=== PATIENT | male | born 1955 | race Caucasian/White ===

== ENCOUNTER → 2018-05-20 12:51 | Outpatient (CLI) | payer BC, SELFPAY ==
--- NOTE | 2018-05-20 13:02 | XR_ITS ---
XR foot RT min 3V HISTORY: ITS.REASON: RT FOOT PAIN ORDERING PHYSICIAN: Shireen Wolf PATIENT AGE: 63 years COMPARISON: None FINDINGS: No fracture or dislocation. No lytic or blastic change. There is normal mineralization.. There is prominent rather uniform narrowing of the MP joint of the great toe. The remaining joint spaces appear normal. The plantar arch is normal. IMPRESSION: Mild osteoarthritis MP joint great toe otherwise negative right foot
== END ==
PROVIDERS: PCP Family Medicine; Visit Provider Nurse Practitioner
DX: M79.671 Pain in right foot (principal)
CPT/HCPCS: 73630

== ENCOUNTER → 2022-04-28 12:10 | Outpatient (CLI) | payer SELFPAY ==
[2022-04-28 18:35] LABS: Alanine Aminotransferase 18 U/L (12-78); Albumin/Globulin Ratio 2.1 (1.1-1.8); Alkaline Phosphatase 40 U/L (38-126); Anion Gap 12.6 mEq/L (5-15); Aspartate Amino Transferase 27 U/L (17-59); Bilirubin,Total 0.6 mg/dl (0.2-1.3); Blood Urea Nitrogen 14 mg/dl (9-20); Calcium 9.1 mg/dl (8.4-10.2); Carbon Dioxide 30 mmol/L (22.0-30.0); Chloride 100 mmol/L (98-107); Estimated Glomerular Filt Rate 97 ml/min (>60); GFR (African American) 117 ML/MIN (>60); Globulin 2.4 g/dL (1.3-3.2); Glucose 103 mg/dl (74-100); Potassium 3.6 mmoL/L (3.5-5.1); Sodium 139 mmol/L (136-145); Total Protein,Serum 7.4 g/dl (6.3-8.2)
== END ==
PROVIDERS: PCP Family Medicine; Visit Provider Family Medicine
DX: I10 Essential (primary) hypertension (principal)
CPT/HCPCS: 80053

== ENCOUNTER → 2022-08-15 23:13 | Outpatient (CLI) | payer MEDICARE, SELFPAY ==
[2022-08-15 19:05] LABS: Alanine Aminotransferase 20 U/L (12-78); Albumin Level 4.5 g/dl (3.5-5.0); Albumin/Globulin Ratio 2.3 (1.1-1.8); Alkaline Phosphatase 35 U/L (38-126); Anion Gap 11.8 mEq/L (5-15); Aspartate Amino Transferase 29 U/L (17-59); Bilirubin,Total 0.4 mg/dl (0.2-1.3); Blood Urea Nitrogen 15 mg/dl (9-20); Calcium 8.5 mg/dl (8.4-10.2); Carbon Dioxide 30 mmol/L (22.0-30.0); Chloride 101 mmol/L (98-107); Estimated Glomerular Filt Rate 113 ml/min (>60); GFR (African American) 137 ML/MIN (>60); Glucose 100 mg/dl (74-100); Potassium 3.8 mmoL/L (3.5-5.1); Sodium 139 mmol/L (136-145); Total Protein,Serum 6.5 g/dl (6.3-8.2)
[2022-08-15 19:37] LABS: Prostate Specific Ag Screen 2.2 ng/ml (0.0-4.0)
== END ==
PROVIDERS: PCP Family Medicine; Visit Provider Family Medicine
DX: I10 Essential (primary) hypertension (principal); Z12.5 Encounter for screening for malignant neoplasm of prostate
CPT/HCPCS: 80053; G0103

== ENCOUNTER → 2023-01-16 11:00 | Outpatient (CLI) | payer MEDICARE, SELFPAY ==
[2023-01-16 19:46] LABS: Basophils % 0.6 % (0.1-2.0); Eosinophils # 0.1 K/mm3 (0.0-0.4); Eosinophils % 0.8 % (0.1-12.0); Hematocrit 49.6 % (42.0-52.0); Hemoglobin 16.2 g/dL (14.1-18.0); Lymphocytes # 2.2 K/mm3 (0.7-4.5); Mean Corpuscular HGB Conc 32.6 g/dL (31.8-35.4); Mean Corpuscular Hemoglobin 30.5 pg (27.0-31.2); Mean Corpuscular Volume 93.5 fl (80-94); Mean Platelet Volume 9.4 fl (7.4-10.4); Monocytes # 0.5 K/mm3 (0.1-1.0); Monocytes % 6.6 % (1.7-9.3); Neutrophils # 4.3 K/mm3 (1.8-7.8); Platelet Count 212 K/mm3 (142-424); Red Cell Distribution Width 13.4 % (11.5-17.5); White Blood Count 7.1 K/mm3 (4.8-10.8)
[2023-01-16 19:53] LABS: Alanine Aminotransferase 22 U/L (12-78); Albumin Level 4.6 g/dl (3.5-5.0); Albumin/Globulin Ratio 1.8 (1.1-1.8); Alkaline Phosphatase 35 U/L (38-126); Anion Gap 15.9 mEq/L (5-15); Aspartate Amino Transferase 29 U/L (17-59); Bilirubin,Total 0.5 mg/dl (0.2-1.3); Blood Urea Nitrogen 18 mg/dl (9-20); Calcium 9.1 mg/dl (8.4-10.2); Carbon Dioxide 23 mmol/L (22.0-30.0); Chloride 103 mmol/L (98-107); Chol/HDL Ratio 3.1 (1-3.5); Cholesterol 128 mg/dl (140-200); Estimated Glomerular Filt Rate 97 ml/min (>60); GFR (African American) 117 ML/MIN (>60); Globulin 2.6 g/dL (1.3-3.2); Glucose 109 mg/dl (74-100); HDL Cholesterol 41 mg/dl (40-60); Potassium 3.9 mmoL/L (3.5-5.1); Sodium 138 mmol/L (136-145); Total Protein,Serum 7.2 g/dl (6.3-8.2); Triglycerides 69 mg/dl (30-150); VLDL Cholesterol 14 mg/dL (0-40)
[2023-01-16 20:05] LABS: Direct LDL Cholesterol 70.68 mg/dL (100-129)
[2023-01-16 20:24] LABS: Thyroid Stimulating Hormone 0.41 uIU/mL (0.465-4.68)
== END ==
PROVIDERS: PCP Family Medicine; Visit Provider Family Medicine
DX: I10 Essential (primary) hypertension (principal)
CPT/HCPCS: 80053; 80061; 84443; 85025

== ENCOUNTER → 2023-03-06 09:09 | Outpatient (CLI) | payer MEDICARE, SELFPAY ==
[2023-03-06 19:24] LABS: Free T4 (Free Thyroxine) 0.87 ng/dl (0.78-2.19)
[2023-03-06 19:39] LABS: Thyroid Stimulating Hormone 0.95 uIU/mL (0.465-4.68)
== END ==
PROVIDERS: PCP Family Medicine; Visit Provider Family Medicine
DX: I10 Essential (primary) hypertension (principal); Z79.899 Other long term (current) drug therapy
CPT/HCPCS: 84439; 84443

== ENCOUNTER 2023-07-17 21:10 | Outpatient (CLI) | payer MEDICARE, SELFPAY ==
[2023-07-17 19:51] LABS: Hemoglobin A1C 5.6 % (4.0-6.0)
[2023-07-17 19:53] LABS: T4 (Thyroxine) 6.8 ug/dl (5.53-11.0)
[2023-07-17 20:07] LABS: Prostate Specific Ag, Diagnost 4.06 ng/ml (0.0-4.0); Thyroid Stimulating Hormone 0.63 uIU/mL (0.465-4.68)
== END 2023-07-17 23:59 ==
LOC: LAB.DROPOF 21:11
PROVIDERS: PCP Family Medicine; Visit Provider Family Medicine
DX: E07.9 Disorder of thyroid, unspecified (principal); R73.9 Hyperglycemia, unspecified; N40.2 Nodular prostate without lower urinary tract symptoms
CPT/HCPCS: 83036; 84153; 84436; 84443

== ENCOUNTER 2023-08-07 14:07 | Outpatient (CLI) | payer MEDICARE, SELFPAY | END 2023-08-07 23:59 | LOC: LAB.DROPOF 08-08 14:08 | PROVIDERS: PCP Family Medicine; Visit Provider Family Medicine | DX: R30.0 Dysuria (principal) | CPT/HCPCS: 87086 ==

== ENCOUNTER 2023-08-13 07:18 | Outpatient (CLI) | payer MEDICARE, SELFPAY ==
--- NOTE | 2023-08-13 07:19 | CT_ITS ---
FINAL REPORT TECHNIQUE: After the administration of oral and intravenous contrast, axial images were obtained through the abdomen and pelvis by computed tomography. The study was performed with techniques to keep radiation dose as low as reasonably achievable, (ALARA). Individual dose reduction techniques using automated exposure control or adjustment of mA and/or kV according to the patient's size were employed. CLINICAL HISTORY: pain, lower abdomen, testicle pain, enlarged prostate COMPARISON: None FINDINGS: Abdomen: The lung bases are clear. The liver parenchyma is homogeneous. Calcified gallstones are present in the gallbladder. The spleen and pancreas appear unremarkable. There is a adrenal nodule on the left side, which measures 1.2 cm in diameter. There is a benign-appearing cyst in the left kidney, measuring 2.4 cm in diameter. The aorta is normal in caliber. There is no free fluid or adenopathy. Pelvis: The appendix is not identified. Moderate diverticulosis of the sigmoid colon is noted without acute inflammatory change. The urinary bladder is nondistended. There is no free fluid or adenopathy. There is prostate enlargement, measuring 6 cm in diameter, with posterior calcifications. IMPRESSION: Calcified gallstones present in the gallbladder without biliary ductal dilatation. 1.2 cm left adrenal cyst. Benign-appearing cyst in the left kidney measuring 2.4 cm in diameter. Prostate enlargement, measuring 6 cm in diameter, with posterior calcifications noted. Reviewed, Interpreted and Dictated by Raymond Blake MD Transcribed by Ingris Adams Authenticated and [facility]
[2023-08-13 07:55] LABS: Blood Urea Nitrogen 7 mg/dl (9-20); Estimated Glomerular Filt Rate 112 ml/min (>60); GFR (African American) 136 ML/MIN (>60)
[2023-08-13] MEDS: SODIUM CHLORIDE 0.9% 10ML SYR (RAD ONLY) 10 ML IV (08:31)
[2023-08-13] MEDS: IOPAMIDOL-370 (76%);100ML BOTTLE 75 ML IV (08:31)
== END 2023-08-13 23:59 ==
LOC: RAD 07:19
PROVIDERS: PCP Family Medicine; Visit Provider Family Medicine
DX: R10.9 Unspecified abdominal pain (principal)
CPT/HCPCS: 36415; 74177; 82565; 84520; Q9967

== ENCOUNTER 2023-09-10 08:11 | Outpatient (CLI) | payer MEDICARE, SELFPAY ==
--- NOTE | 2023-09-10 08:11 | US_ITS ---
FINAL REPORT CLINICAL HISTORY: Right upper quad pain x 2 months FINDINGS: Sonographic images of the right upper quadrant were obtained. The pancreas is partially obscured.The liver has an unremarkable appearance. Lobular echogenic shadowing foci are seen in the gallbladder favored to represent unusual stones over tumefactive sludge or mass. These measure up to 1.7 cm. Common duct is normal in caliber at 3 mm. Right kidney demonstrates a 1.4 cm cyst but is otherwise unremarkable. IMPRESSION: Abnormal foci in the gallbladder which could represent unusual stones, tumefactive sludge or mass. Recommend follow-up ultrasound or MRCP for further evaluation. Reviewed, Interpreted and Dictated by Luc Lynn III, MD Transcribed by Bonita Brown Authenticated and [facility]
== END 2023-09-10 23:59 | disposition home or self-care (01) ==
LOC: RAD 08:11
PROVIDERS: PCP Family Medicine; Visit Provider Surgery
DX: R10.9 Unspecified abdominal pain (principal)
CPT/HCPCS: 76705

== ENCOUNTER 2023-11-08 13:38 | Outpatient (CLI) | payer MEDICARE, SELFPAY ==
[2023-11-08 14:17] LABS: Basophils % 0.6 % (0.1-2.0); Eosinophils % 0.4 % (0.1-12.0); Hematocrit 41.6 % (42.0-52.0); Hemoglobin 14.4 g/dL (14.1-18.0); Lymphocytes # 1.6 K/mm3 (0.7-4.5); Lymphocytes % 29.3 % (10-50); Mean Corpuscular HGB Conc 34.7 g/dL (31.8-35.4); Mean Corpuscular Hemoglobin 32.5 pg (27.0-31.2); Mean Corpuscular Volume 93.7 fl (80-94); Mean Platelet Volume 8.6 fl (7.4-10.4); Monocytes # 0.4 K/mm3 (0.1-1.0); Monocytes % 6.5 % (1.7-9.3); Neutrophils # 3.4 K/mm3 (1.8-7.8); Neutrophils % 63.1 % (37.0-80.0); Platelet Count 190 K/mm3 (142-424); Red Blood Count 4.44 M/mm3 (4.60-6.20); Red Cell Distribution Width 13.6 % (11.5-17.5); White Blood Count 5.4 K/mm3 (4.8-10.8)
[2023-11-08 14:33] LABS: Alanine Aminotransferase 18 U/L (12-78); Albumin Level 4.6 g/dl (3.5-5.0); Albumin/Globulin Ratio 2.3 (1.1-1.8); Alkaline Phosphatase 25 U/L (38-126); Anion Gap 8.5 mEq/L (5-15); Aspartate Amino Transferase 23 U/L (17-59); Blood Urea Nitrogen 24 mg/dl (9-20); Calcium 9.3 mg/dl (8.4-10.2); Carbon Dioxide 33 mmol/L (22.0-30.0); Chloride 100 mmol/L (98-107); Estimated Glomerular Filt Rate 112 ml/min (>60); GFR (African American) 136 ML/MIN (>60); Glucose 78 mg/dl (74-100); Potassium 3.5 mmoL/L (3.5-5.1); Sodium 138 mmol/L (136-145); Total Protein,Serum 6.6 g/dl (6.3-8.2)
== END 2023-11-08 23:59 | disposition home or self-care (01) ==
LOC: LAB 13:39
PROVIDERS: PCP Family Medicine; Visit Provider Surgery
DX: K80.20 Calculus of gallbladder without cholecystitis without obstruction (principal)
CPT/HCPCS: 36415; 80053; 85025

== ENCOUNTER 2023-12-03 06:51 | Day surgery (SDC) | payer MEDICARE, SELFPAY ==
[2023-12-03] VITALS (11 sets, daily range): BP systolic 110–157; BP diastolic 63–84; PULSE 58–71; RESP 14–19; TEMP 36.4–43; O2SAT 91–100; BMI 22.7
[2023-12-03] MEDS: LACTATED RINGERS 1000ML 1,000 ML 25 ML IV (07:10)
--- NOTE | 2023-12-03 07:24 | P.PNANES_ITS ---
[facility] Disclaimer: The information contained in this section may have been updated after the patient was seen, as this information can be updated by other users. Medical History Cholelithiasis Benign prostatic hyperplasia Abdominal pain Hip pain Abnormal TSH Hyperglycemia Seborrheic dermatitis Bilateral cataracts Closed comedone Primary hypertension Skin abscess Hypertension Surgical History History of colonoscopy Status post bilateral iridectomy Family History Other Cancer Diabetes Hypertension Social History Smoking Status: Never smoker alcohol intake: never substance use type: denies use current occupational status: employed Travel in the last 8 weeks: None household members: family housing: house [facility] Anesthesia Checklist Patient Identification Patient Identification: Arm Band and Verbal (Name & ) Structural Data Admitted From: Home Planned Operative Procedure/s: Lap. cholecystectomy Consent for Planned Operative Procedure(s) Verified: Yes Verified Documents: Surgical Consent and History and Physical NPO Status Verified Time NPO: 00:00 Chart Verification Results Verified: CBC and BMP Additional verifications Anesthesia Reactions: No Airway Assessment Mallampati Score:: Class III C-Spine Mobility Assessed: Yes TMJ Mobility Assessed: Yes Dentition: Good Dentition Neurological Assessment Level of Consciousness: Awake Hx Seizures: No Numbness or tingling in extremities: No Anesthesia Plan Anesthesia Risk discussed: Yes Anesthesia Plan: Verified ASA Class: II Anesthesia Type: General
[2023-12-03] MEDS: CEFAZOLIN SODIUM 2 GM in 0.9 % SODIUM CHLORIDE 100 ML IV (08:15)
[2023-12-03] MEDS: ROPIVACAINE 0.5% 30ML VIAL 150 MG (08:43)
[2023-12-03] MEDS: LIDOCAINE 1% 20ML MDV 20 ML (08:43)
[2023-12-03] MEDS: SODIUM CHLORIDE IRRIG SOLUTION 3,000 ML 25 ML IR (08:43)
--- NOTE | 2023-12-03 11:05 | EXP.OP.NOTE ---
Date of procedure: 12/03/23 Pre-op Diagnosis:: Symptomatic gallstones Post-op Diagnosis:: Same Procedure performed:: Laparoscopic cholecystectomy, laparoscopic liver biopsy Surgeon:: Luc Fuchs MD STORM SASH MAKER:: Hadley Chun Anesthesia: GETA Estimated blood loss (mL): 100 Clinical Note:: Patient presents for cholecystectomy. He is a pleasant 68-year-old male referred by Dr. Feldman from the [facility] for gallstones. Patient is originally from [place] and has lived in [facility] [place] for the past 9 years. Previously resided in [place] near [place]. He describes a several month history of some atypical symptoms. He describes pain in the right groin area radiating down to the right testicle. He has some urinary frequency. He also has frequent bowel movements moving his bowels approximately 4-8 times per day. These are not loose diarrhea but somewhat thin and soft. He has some feeling of incomplete evacuation. He was started on MiraLAX he states but this actually increased his diarrhea. As a workup he underwent CT scan. This revealed some calcified gallstones without ductal dilatation. There was some prostate enlargement measuring 6 cm in diameter with calcifications. He was sent for surgical consultation. Patient has previously seen a pantry worker in [facility]. He states that he is due for a colonoscopy in January of this year. I felt that his symptoms were rather atypical for gallbladder. I did recommend he expedite following up with his pantry worker. He also has an appointment with urology. I did have him undergo gallbladder ultrasound. This reveals abnormal foci in the gallbladder which could represent unusual stones, tumefactive sludge, or mass. Radiology recommends follow-up ultrasound or MRCP for further evaluation. I felt that MRCP would be rather low yield. I did have him proceed with his gastroenterology follow-up and he has undergone colonoscopy which was relatively unremarkable. Operative findings:: Despite the fact that the patient had voided immediately prior to being taken to the operating room his bladder was markedly distended requiring intraoperative Chery catheter placement. There were adhesions to the liver overlying the gallbladder. Gallbladder was elongated. There was apparent stones within the gallbladder. Anatomy at the neck of the gallbladder was initially somewhat difficult to discern likely due to chronic inflammation. There was a lesion in the left lobe of the liver, likely hemangioma, however atypical appearing and therefore biopsy was obtained. Operative note:: Consent was obtained patient was taken the operating room. Patient had voided immediately prior to being taken to the operating room. In the operating room he was placed in a supine position. General anesthesia was induced. Abdomen was prepped and draped in the standard surgical fashion. Subumbilical skin incision was made and while performing abdominal wall lift Veress needle was inserted. CO2 pneumoperitoneum was achieved to 15 mmHg. 11 mm optical trocar was inserted at the umbilicus. Intraperitoneal contents were visualized. He may have the beginnings of bilateral tiny indirect inguinal hernias. However most notable in the pelvis was markedly distended tense bladder. This required intraoperative placement of Chery catheter for bladder decompression. Patient was then positioned in reverse Trendelenburg with left side down. A couple 5 mm trocars were inserted in the right abdomen. 11 mm trocar was inserted in the epigastrium. Liver was elevated. There was some mild fatty infiltration of the liver. There were adhesions of omentum overlying the gallbladder. These were taken down from the fundus of the gallbladder using hannah ultrasonic harmonic jose. The gallbladder was then grasped retracted anteriorly and superiorly over the dome of the liver. Infundibulum of the gallbladder was retracted anterior laterally. Initially it was rather difficult to discern the anatomy at the neck of the gallbladder. The visceral peritoneum was incised. Prolonged meticulous dissection was carried out using blunt dissection with limited use of HANNAH ultrasonic harmonic jose. Ultimately the cystic duct and cystic artery were identified and the critical view of safety. The cystic duct was multiply clipped and sharply divided. Cystic artery was carefully coagulated with ice ultrasonic harmonic jose and divided. The gallbladder was dissected free from the liver in a retrograde fashion using a's ultrasonic harmonic jose. The gallbladder was placed within an Endo Catch retrieval device and removed from the peritoneal cavity via the umbilical trocar site. Please note that laparoscopic surveillance at the beginning of the procedure noted a lesion in the left lobe of the liver. This could be hemangioma but appeared somewhat atypical. Decision was made for biopsy. Use of the 5 mm 30 degree laparoscope was utilized. Lesion was incised on each side with harmonic jose. It was grasped with the stone grasping forceps and remaining attachments were incised with laparoscopic electrocautery. There was some transient bleeding from the site of the biopsy and the liberal use of electrocautery was utilized for good hemostasis. Residual blood was suctioned free and irrigation was performed until clear. There appeared to be good hemostasis. For assurance of hemostasis a small piece of Surgicel was placed at the liver biopsy site. Trocars were then removed the CO2 pneumoperitoneum was evacuated. Fascia at the umbilicus was closed with a couple of interrupted 0 Vicryl sutures. Local anesthetic was infiltrated. Skin incisions were closed with 4-0 Monocryl in a subcuticular fashion. Dermabond and dressings were applied. . Condition: stable Disposition: PACU Complications:: None immediately apparent
--- NOTE | 2023-12-03 11:10 | EXP.ANES.I ---
[facility] Anesthesia Record Part I Anesthesia Record I Intake, IV Amount: 1,500 Hydration: Adequate Estimated blood loss (mL): 100 Urine output (mL): 900 Blood Pressure: 110/63 SaO2: 98 Pulse Rate: 60 Airway Patency: Patent Respiratory Rate: 19 Temperature: 97.6 F Patient is:: Drowsy Stable to PACU at:: 11:10
[2023-12-03] MEDS: MORPHINE 2MG/ML SYRINGE 2 MG IV (11:39)
[2023-12-03 19:05] LABS: Microscopic,Cath URINE MICROSCOPIC (MICROSCOPIC)
[2023-12-03 20:47] LABS: Appearance,Urine/Cath CLEAR (Clear); Bilirubin,Cath Negative (Negative); Blood, Urine/Cath 1+ (Negative); Color,Urine/Cath YELLOW (Yellow); Glucose,Urine/Cath (UA) Negative (Negative); Ketones,Urine/Cath Negative (Negative); Leukocyte Esterase,Cath Negative (Negative); Nitrate,Cath Negative (Negative); Protein,Urine/Cath Negative (Negative); Urobilinogen,Cath 0.2 EU/dl (0.2)
[2023-12-03 21:42] LABS: RBC,Urine/Cath 20-50 # /hpf (0-3); Squamous Epithelial Ur./Cath Occasional #/hpf (0-5); WBC,Urine/Cath Occasional #/hpf (0-3)
[2023-12-04 07:49] VITALS: BP 137/72; PULSE 58; RESP 16; TEMP 36.5; O2SAT 98
--- NOTE | 2023-12-04 07:49 | EXP.ANES.II ---
[facility] Anesthesia Record Part II Anesthesia Record Part II Discharge Time: 11:40 Destination: Surgical Day Care (OP Surgery) PACU nurse assessment reviewed?: Yes Patient Condition:: Good Anesthesia Complications:: None Swallowing reflex intact?: Yes Airway Patency: Patent Cyanosis?: No Blood Pressure: 137/72 SaO2: 98 Respiratory Rate: 16 Pulse Rate: 58 Temperature: 97.7 F Mental Status: Alert & Oriented Pain level:: 5 Nausea and/or vomitting:: None Intake, IV Amount: 0 Hydration: Adequate
== END 2023-12-03 12:14 | disposition home or self-care (01) ==
PROVIDERS: PCP Family Medicine; Visit Provider Surgery
PROC: 0FT44ZZ Resection of Gallbladder, Percutaneous Endoscopic Approach (ICD-10-PCS; CPT 47562; principal; 2023-12-03 08:30)
DX: K80.10 Calculus of gallbladder with chronic cholecystitis without obstruction (principal); D18.03 Hemangioma of intra-abdominal structures
CPT/HCPCS: 47379; 47562; 81001; 96374; J3490; J0131; J0690; J1100; J2250; J2270; J2405; J3010; J7120

== ENCOUNTER 2024-02-18 20:08 | Outpatient (CLI) | payer MEDICARE, SELFPAY ==
[2024-02-18 21:55] LABS: Prostate Specific Ag Screen 2.3 ng/ml (0.0-4.0)
== END 2024-02-18 23:59 | disposition home or self-care (01) ==
LOC: LAB.DROPOF 20:09
PROVIDERS: PCP Student in an Organized Health Care Education/Training Program; Visit Provider Student in an Organized Health Care Education/Training Program
DX: N40.2 Nodular prostate without lower urinary tract symptoms (principal); R97.20 Elevated prostate specific antigen [PSA]; Z12.5 Encounter for screening for malignant neoplasm of prostate
CPT/HCPCS: G0103

== ENCOUNTER 2024-04-29 12:42 | Outpatient (CLI) | payer MEDICARE, SELFPAY ==
[2024-04-29 19:34] LABS: Basophils % 0.6 % (0.1-2.0); Eosinophils % 0.6 % (0.1-12.0); Hematocrit 45.2 % (42.0-52.0); Hemoglobin 15.9 g/dL (14.1-18.0); Lymphocytes # 1.4 K/mm3 (0.7-4.5); Lymphocytes % 28.4 % (10-50); Mean Corpuscular HGB Conc 35.2 g/dL (31.8-35.4); Mean Corpuscular Hemoglobin 31.6 pg (27.0-31.2); Mean Corpuscular Volume 89.9 fl (80-94); Mean Platelet Volume 10.8 fl (7.4-10.4); Monocytes # 0.3 K/mm3 (0.1-1.0); Monocytes % 6.8 % (1.7-9.3); Neutrophils # 3.2 K/mm3 (1.8-7.8); Platelet Count 170 K/mm3 (142-424); Red Blood Count 5.03 M/mm3 (4.60-6.20); Red Cell Distribution Width 12.8 % (11.5-17.5)
[2024-04-29 19:58] LABS: Alanine Aminotransferase 26 U/L (12-78); Albumin Level 4.8 g/dl (3.5-5.0); Albumin/Globulin Ratio 2.5 (1.1-1.8); Alkaline Phosphatase 23 U/L (38-126); Aspartate Amino Transferase 33 U/L (17-59); Bilirubin,Total 0.9 mg/dl (0.2-1.3); Blood Urea Nitrogen 26 mg/dl (9-20); Calcium 9.4 mg/dl (8.4-10.2); Carbon Dioxide 28 mmol/L (22.0-30.0); Chloride 104 mmol/L (98-107); Estimated Glomerular Filt Rate 84 ml/min (>60); GFR (African American) 102 ML/MIN (>60); Globulin 1.9 g/dL (1.3-3.2); Glucose 96 mg/dl (74-100); Lipase 301 U/L (23-300); Sodium 141 mmol/L (136-145); Total Protein,Serum 6.7 g/dl (6.3-8.2)
[2024-04-29 20:31] LABS: Anion Gap 12.7 mEq/L (5-15); Potassium 3.7 mmoL/L (3.5-5.1)
[2024-05-01 13:39] LABS: Antinuclear Antibodies (ANA) Negative (Negative)
== END 2024-04-29 23:59 | disposition home or self-care (01) ==
LOC: LAB.DROPOF 05-01 12:42
PROVIDERS: PCP Family Medicine; Visit Provider Family Medicine
DX: R10.9 Unspecified abdominal pain (principal); L60.8 Other nail disorders; I10 Essential (primary) hypertension
CPT/HCPCS: 80053; 83690; 85025; 86038

== ENCOUNTER 2024-11-11 12:04 | Outpatient (CLI) | payer MEDICARE, SELFPAY ==
[2024-11-11 15:36] LABS: Alanine Aminotransferase 21 U/L (12-78); Albumin Level 4.9 g/dl (3.5-5.0); Albumin/Globulin Ratio 2.2 (1.1-1.8); Alkaline Phosphatase 32 U/L (38-126); Anion Gap 17.8 mEq/L (5-15); Aspartate Amino Transferase 33 U/L (17-59); Bilirubin,Total 1.0 mg/dl (0.2-1.3); Blood Urea Nitrogen 22 mg/dl (9-20); Calcium 9.8 mg/dl (8.4-10.2); Carbon Dioxide 28 mmol/L (22.0-30.0); Chloride 96 mmol/L (98-107); Creatinine,Serum 0.70 mg/dl (0.66-1.25); Estimated Glomerular Filt Rate 112 ml/min (>60); GFR (African American) 136 ML/MIN (>60); Globulin 2.2 g/dL (1.3-3.2); Glucose 106 mg/dl (74-100); Potassium 3.8 mmoL/L (3.5-5.1); Sodium 138 mmol/L (136-145); Total Protein,Serum 7.1 g/dl (6.3-8.2)
--- OUTSIDE RECORDS SUMMARY | 2024-11-12 10:33 | XMS_ITS | Clinical Summary ---
Author Organization [facility] Address [address] [place] [address] Care Team Providers Care Biomedical Scientist Name Role Phone Javid Feldman MD Primary Care Provider [phone] Source Comments This information has been disclosed to you from confidential records protectedfrom disclosure by state law. You shall make no further disclosure of thisinformation without the specific, written, and informed release of theindividual to whom it pertains, or as otherwise permitted by law. A generalauthorization for the release of medical or other information is not sufficientfor the purposes of therelease of HIV test results or diagnoses. [id number] Health Allergies Active Allergy Reactions Criticality Noted Date Comments Other 02/10/2021 Peaches-- possible Medications atenolol (TENORMIN) 25 MG tablet Take 25 mg by mouth daily. 1 12/27/2018 Active valsartan-hydroc hlorothiazide (DIOVAN-HCT) 320-25 mg per tablet Take 1 tablet by mouth daily. Active Active Problems Problem Noted Date Diagnosed Date History of colon polyps 01/14/2019 Overview (01/14/2019): Added automatically from request for surgery [id number] Family history of colon cancer 01/14/2019 Overview (01/14/2019): Added automatically from request for surgery [id number] Social History Tobacco Use Types Packs/Day Years Used Date Smoking Tobacco: Never Smokeless Tobacco: Never Alcohol Use Standard Drinks/Week Comments No 0 (1 standard drink = 0.6 oz pur e alcohol) PHQ-2 Answer Date Recorded PHQ-2 Total Score 0 02/07/2021 Sex and Gender Information Value Date Recorded Sex Assigned at Not on file Legal Sex Male 8:47 AM EDT Gender Identity Male 02/10/2021 9:50 AM EDT Sexual Orientation Not on file Last Filed Vital Signs Vital Sign Reading Time Taken Comments Blood Pressure 121/69 02/10/2021 12:31 PM EDT Pulse 61 02/10/2021 12:32 PM EDT Temperature 36.4 C (97.5 F) 02/10/2021 12:32 PM EDT Respiratory Rate 11 02/10/2021 12:32 PM EDT Oxygen Saturation 95% 02/10/2021 12:32 PM EDT Inhaled Oxygen Concentration 95% 02/10/2021 1 2:32 PM EDT Weight 67.2 kg (148 lb 3.2 oz) 02/10/2021 10:19 AM EDT Height 170.2 cm (5' 7 ) 02/10/2021 10:19 AM EDT Body Mass Index 23.21 02/10/2021 10:19 AM EDT Plan of Treatment Not on file Insurance AET[employer] POS [facility] MEDICARE HMO COMPLETE Care Teams Biomedical Scientist Relationship Specialty Start Date End Date Javid Feldman MD [address] [place] [address] PCP - General Family Medicine 01/30/19
--- OUTSIDE RECORDS SUMMARY | 2024-11-12 10:33 | XMS_ITS | Clinical Summary ---
Author Organization [facility] Address [address] [place] [address] Phone Care Team Providers Care Scraper Burrer Name Role Phone Unavailable Primary Care Provider Unavailabl e Allergies Active Allergy Reactions Criticality Noted Date Comments Citalopram 08/05/2015 Upset stomach Naproxen 08/05/2015 Upset stomach Medications gemfibrozil (LOPID) 600 mg Oral Tablet Take 600 mg by mouth 2 times daily. Active atenolol (TENORMIN) 25 mg Oral Tablet Take 25 mg by mouth daily. Active losartan-hydroch lorothiazide (HYZAAR) 100-12.5 mg Oral TabletIndication s:Essential hypertension Take 1 Tab by mouth daily. 90 Tab 1 6 Active Additional Information Patient not taking.Reported on 08/10/2023 amitriptyline (ELAVIL) 10 mg Oral Tablet Take 1-2 tabs qhs 180 Tab 1 6 Active ciprofloxacin HCl (CIPRO) 500 mg Oral Tablet TAKE 1 TABLET BY MOUTH TWICE DAILY FOR PROSTATITIS. 4 Active tamsulosin (FLOMAX) 0.4 mg Oral Capsule Take 0.4 mg by mouth daily. 4 Active Active Problems Problem Noted Date Diagnosed Date Fibromyalgia 08/09/2015 HTN (hypertension) 08/05/2015 S/P colonoscopy 08/05/2015 Overview (08/05/2015): 01/2015, pt reports 1 polyp was found, repeats every 3-5 yrs High triglycerides 08/05/2015 Surgical History Surgery Date Site/Laterality Comments FINGER SURGERY tendon repair Family History Medical History Relation Name Comments Cancer Mother colon Cancer Sister colon Relation Name Status Comments Mother Sister Social History Tobacco Use Types Packs/Day Years Used Date Smoking Tobacco: Never Smokeless Tobacco: Never Tobacco Cessation:Counseling Given: No Alcohol Use Standard Drinks/Week Comments Not Asked 0 (1 standard drink = 0.6 oz pur e alcohol) Sex and Gender Information Value Date Recorded Sex Assigned at Not on file Legal Sex Male 3:32 PM EDT Gender Identity Not on file Sexual Orientation Not on file Obstetrics History Last Filed Vital Signs Vital Sign Reading Time Taken Comments Blood Pressure 130/62 08/10/2023 5:19 PM EDT Pulse 62 08/10/2023 5:19 PM EDT Temperature 37.1 C (98.7 F) 08/10/2023 5:19 PM EDT Respiratory Rate 16 08/10/2023 5:19 PM EDT Oxygen Saturation 98% 08/10/2023 5:19 PM EDT Inhaled Oxygen Concentration - - Weight 68.5 kg (151 lb) 08/10/2023 5:19 PM EDT Height 171.5 cm (5' 7.5 ) 08/10/2023 5:19 PM EDT Body Mass Index 23.3 08/10/2023 5:19 PM EDT Plan of Treatment Health Maintenance Due Date Last Done Comments Wellness Exam Medicare 01/23/1959 Hepatitis C Screening 01/23/1974 DTaP/TDaP/Td (1 - Tdap) 01/23/1975 Cologuard 01/23/2001 FIT 01/23/2001 Sigmoidoscopy 01/23/2001 Virtual Colonography 01/23/2001 Zoster (1 of 2) 01/23/2006 COVID-19 Vaccine ( season) 2023 02/27/2022, 03/04/2021, 08/19/2020, Additional history exists Influenza Vaccine (#1) 2024 04/28/2022 Colon Cancer Screening 02/10/2025 Colonoscopy 02/10/2025 02/10/2015 Pneumococcal Vaccine 50+ Completed 08/23/2021 Hepatitis B Vaccine Aged Out No longe r eligible based on patient's age to complete this topic Meningococcal B Vaccine Aged Out No l onger eligible based on patient's age to complete this topic Insurance [employer] MEDICARE ADVANTAGE HMO-POS
--- OUTSIDE RECORDS SUMMARY | 2024-11-12 10:33 | XMS_ITS | Clinical Summary ---
Author Organization [facility] Address [address] [place] [address] [place] [address] Care Team Providers Care Machine Tool Operator Name Role Phone Other, Physician Jason WILLAMS Primary Care Provi louise Unavailable Social History Tobacco Use Types Packs/Day Years Used Date Smoking Tobacco: Never Assessed Sex and Gender Information Value Date Recorded Sex Assigned at Not on file Legal Sex Male 3:48 PM EDT Gender Identity Not on file Sexual Orientation Not on file Last Filed Vital Signs Vital Sign Reading Time Taken Comments Blood Pressure - - Pulse - - Temperature - - Respiratory Rate - - Oxygen Saturation - - Inhaled Oxygen Concentration - - Weight 68.9 kg (152 lb) 11/21/2018 11:40 AM EDT Height 171.5 cm (5' 7.5 ) 11/21/2018 11:40 AM ED T Body Mass Index 23.46 11/21/2018 11:40 AM EDT Plan of Treatment Health Maintenance Due Date Last Done Comments Hepatitis C Screening 1955 DTap,Tdap,and Td (1 - Tdap) 01/23/1967 Colonoscopy 01/23/2001 PSA YEARLY 01/23/2006 Pneumococcal 50+ (1 of 1 - PCV) 01/23/2006 Shingrix (#1) 01/23/2006 Influenza Vaccine (Season Ended) 2024 RSV Vaccine (60+ or ) (1 - 1-dose 75+ series) 01/23/2031 HPV Aged Out No longer eligi ble based on patient's age to complete this topic Meningococcal conjugate guera nt 4 (MCV4) Aged Out No longer eligible b ased on patient's age to complete this topic RSV Immunization (<20 months) Aged Out No longer eligible based on patient's age to complete this topic Insurance [facility] ALL OTHERS NOT MEDICARE Care Teams Machine Tool Operator Relationship Specialty Start Date End Date Other, Physician MD Jason PCP - General Internal Medicine 11/20/18
--- OUTSIDE RECORDS SUMMARY | 2024-11-12 10:33 | XMS_ITS | Clinical Summary ---
Author Organization [facility] Address [address] [place] [address] Care Team Providers Care Senior Scientist Name Role Phone None, None Primary Care Provider Unavailabl e Social History Tobacco Use Types Packs/Day Years Used Date Smoking Tobacco: Never Assessed Sex and Gender Information Value Date Recorded Sex Assigned at Not on file Legal Sex Male 12:33 PM EST Gender Identity Not on file Sexual Orientation Not on file Plan of Treatment Not on file Care Teams Senior Scientist Relationship Specialty Start Date End Date None, None [address] [place] [address] PCP - General 03/29/17
--- OUTSIDE RECORDS SUMMARY | 2024-11-12 10:33 | XMS_ITS | Referral Summary ---
Author Organization [facility] Address [address] [place] [address] [place] [address] Care Team Providers Care Data Processing Manager Name Role Phone Other, Physician Jason WILLAMS [...] 11/21/2018 11:40 AM EDT Plan of Treatment Not on file [place] [address] [place] [address] ALL OTHERS NOT MEDICARE Care Teams Data Processing Manager Relationship Specialty Start Date End Date Other, Physician MD Jason PCP - General Internal Medicine 11/20/18
== END 2024-11-11 23:59 | disposition home or self-care (01) ==
LOC: LAB.DROPOF 11-12 10:28
PROVIDERS: PCP Family Medicine; Visit Provider Family Medicine
DX: I10 Essential (primary) hypertension (principal)
CPT/HCPCS: 80053

== ENCOUNTER 2024-12-22 10:54 | Outpatient (CLI) | payer MEDICARE, SELFPAY ==
--- OUTSIDE RECORDS SUMMARY | 2024-12-22 11:38 | XMS_ITS | Referral Summary ---
Author Organization [facility] Address [address] [place] [address] [place] [address] Care Team Providers Care Sound Recordist Name Role Phone Other, Physician Jason WILLAMS [...] Plan of Treatment Not on file Insurance [place] [address] ALL OTHERS NOT MEDICARE Care Teams Sound Recordist Relationship Specialty Start Date End Date Other, Physician MD Jason PCP - General Internal Medicine 11/20/18
--- OUTSIDE RECORDS SUMMARY | 2024-12-22 11:38 | XMS_ITS | Clinical Summary ---
Author Organization [facility] Address [address] [place] [address] Care Team Providers Care Glass Inspector Name Role Phone Javid Feldman MD Primary Care Provider [phone] Source Comments This information has been disclosed to you from confidential records protectedfrom disclosure by state law. You shall make no further disclosure of thisinformation without the specific, written, and informed release of theindividual to whom it pertains, or as otherwise permitted by law. A generalauthorization for the release of medical or other information is not sufficientfor the purposes of the release of HIV test results or diagnoses. [id number] Health Allergies Active Allergy Reactions Criticality Noted Date Comments Other 02/10/2021 Peaches-- possible Medications atenolol (TENORMIN) 25 MG tablet Take 25 mg by mouth daily. 1 12/27/2018 Active valsartan-hydroc hlorothiazide (DIOVAN-HCT) 320-25 mg per tablet Take 1 tablet by mouth daily. Active Active Problems Problem Noted Date Diagnosed Date History of colon polyps 01/14/2019 Overview (01/14/2019): Added automatically from request for surgery [id number] Family history of colon cancer 01/14/2019 Overview (01/14/2019): Added automatically from request for surgery [id number] Social History Tobacco Use Types Packs/Day Years [...] Treatment Not on file Insurance [employer] POS [facility] MEDICARE HMO COMPLETE Care Teams Glass Inspector Relationship Specialty Start Date End Date Javid Feldman MD [address] [place] [address] PCP - General Family Medicine 01/30/19
--- OUTSIDE RECORDS SUMMARY | 2024-12-22 11:38 | XMS_ITS | Clinical Summary ---
Author Organization [facility] Address [address] [place] [address] [place] [address] Care Team Providers Care Water Pollution Control Inspector Name Role Phone Other, Physician Belgicaofgisela WILLAMS Primary Care Provi louise Unavailable Social [...] PCV) 01/23/2006 Shingrix (#1) 01/23/2006 Influenza Vaccine (#1) 2024 RSV Vaccine (60+ or ) (1 [...] patient's age to complete this topic Insurance [facility] ALL OTHERS NOT MEDICARE Care Teams Water Pollution Control Inspector Relationship Specialty Start Date End Date Other, Physician MD Jason PCP - General Internal Medicine 11/20/18
--- OUTSIDE RECORDS SUMMARY | 2024-12-22 11:38 | XMS_ITS | Clinical Summary ---
Author Organization [facility] Address [address] [place] [address] Phone Care Team Providers Care Bobcat Operator Name Role Phone Unavailable Primary Care Provider [...]
--- OUTSIDE RECORDS SUMMARY | 2024-12-22 11:38 | XMS_ITS | Clinical Summary ---
Author Organization [facility] Address [address] [place] [address] Care Team Providers Care Steam Box Hand Name Role Phone None, None Primary Care Provider Unavailabl e Social History Tobacco Use Types Packs/Day Years Used Date Smoking Tobacco: Never Assessed Sex and Gender Information Value Date Recorded Sex Assigned at Not on file Legal Sex Male 12:33 PM EST Gender Identity Not on file Sexual Orientation Not on file Plan of Treatment Not on file Care Teams Steam Box Hand Relationship Specialty Start Date End Date None, None [address] [place] [address] PCP - General 03/29/17
== END 2024-12-22 23:59 | disposition home or self-care (01) ==
LOC: RT 10:55
PROVIDERS: PCP Family Medicine; Visit Provider Family Medicine
DX: I49.1 Atrial premature depolarization (principal)
CPT/HCPCS: 93225; 93227

== ENCOUNTER 2025-03-03 13:32 | Outpatient (CLI) | payer MEDICARE, SELFPAY ==
[2025-03-03 19:12] LABS: Anion Gap 12.7 mEq/L (5-15); Blood Urea Nitrogen 23 mg/dl (9-20); Calcium 9.1 mg/dl (8.4-10.2); Carbon Dioxide 30 mmol/L (22.0-30.0); Chloride 98 mmol/L (98-107); Creatinine,Serum 0.80 mg/dl (0.66-1.25); Estimated Glomerular Filt Rate 96 ml/min (>60); GFR (African American) 116 ML/MIN (>60); Glucose 95 mg/dl (74-100); Potassium 3.7 mmoL/L (3.5-5.1); Sodium 137 mmol/L (136-145)
--- OUTSIDE RECORDS SUMMARY | 2025-03-05 13:35 | XMS_ITS | Clinical Summary ---
Author Organization [facility] Address [address] [place] [address] Phone Care Team Providers Care Salmon Troll Fisher Name Role Phone Unavailable Primary Care Provider [...] of 2) 01/23/2006 COVID-19 Vaccine ( season) 2024 02/27/2022, 03/04/2021, 08/19/2020, Additional history exists Influenza Vaccine (#1) 2024 04/28/2022 Colon Cancer Screening 02/10/2025 Colonoscopy 02/10/2025 02/10/2015 Pneumococcal Vaccine 50+ Completed 08/23/2021 Hepatitis B Vaccine Aged Out No longe r eligible based on patient's age to complete this topic Meningococcal B Vaccine Aged Out No l onger eligible based on patient's age to complete this topic Insurance [employer] MEDICARE ADVANTAGE HMO-POS A[employer] MEDICARE ADVANTAGE O-POS
--- OUTSIDE RECORDS SUMMARY | 2025-03-05 13:35 | XMS_ITS | Clinical Summary ---
Author Organization [facility] Address [address] [place] [address] [place] [address] Care Team Providers Care [employer] Name Role Phone Other, Physician Belgicaofgisela WILLAMS [...] patient's age to complete this topic Insurance [facility]ERS NOT MEDICARE Care Teams [employer] Relationship Specialty Start Date End Date Other, Physician MD Jason PCP - General Internal Medicine 11/20/18
== END 2025-03-03 23:59 | disposition home or self-care (01) ==
LOC: LAB.DROPOF 03-05 13:32
PROVIDERS: PCP Family Medicine; Visit Provider Family Medicine
DX: I10 Essential (primary) hypertension (principal)
CPT/HCPCS: 80048